=== PATIENT | male | born 1985 | race Caucasian/White ===

== ENCOUNTER 2016-10-06 20:08 | Emergency (ER) | payer BC ==
[~2016-10-06] VITALS: Ht 185.4 cm; Wt 148.0 kg
[~2016-10-06 20:08] MED LIST: OMEP20TA39 PO; TYLENOL PO
[2016-10-06 20:15] VITALS: O2SAT 100
[2016-10-06 20:19] VITALS: BP 158/92; PULSE 71; RESP 18; TEMP 98; O2SAT 100
[2016-10-06] MEDS ORDERED: NEXI40CA PO (20:19)
[2016-10-06 20:40] VITALS: BP 149/84; PULSE 78; RESP 18; O2SAT 100
[2016-10-06] MEDS ORDERED: SODIUM CHLORIDE 0.9% FLUSH 10 ML FLUSH IVF PRN (20:45)
--- NOTE | 2016-10-06 20:45 | PD ---
HPI Chief Complaint: Chest Pain Time Seen by Provider: 20:26 Travel History International Travel<30 days: No Contact w/Intl Traveler<30days: No Traveled to known affect area: No History of Present Illness HPI The patient is a 31-year-old male with no known history of heart disease who complains of left shoulder and left anterior chest pain for about 15 minutes prior to admission. He states the pain as a 4/10. He does not have a history of hypertension, elevated cholesterol, diabetes and does not smoke. He has been in before for musculoskeletal pain. He has seen a district operations manager who told him not to worry so much about his heart, that his heart was fine. He has had a Holter monitor and EKG in the past which apparently were normal. He has not had a stress test. He denies any nausea, palpitations, diaphoresis, shortness of breath or radiation of pain. PFSH Past Medical History Diminished Hearing: No GERD: Yes Immunizations Current: Yes Tetanus Vaccination: > 5 Years Influenza Vaccination: No Past Surgical History Abdominal Surgery: Yes (ENDOSCOPY) Social History Alcohol Use: No Tobacco Use: No Substance Use: No Allergies-Medications (Allergen,Severity, Reaction): Coded Allergies: No Known Allergies (Unverified , 10/06/16) Reported Meds & Prescriptions Reported Meds & Active Scripts Active Reported Nexium (Esomeprazole DR) 40 Mg Capdr 40 Mg PO DAILY Review of Systems Except as stated in HPI: all other systems reviewed are Neg Physical Exam Narrative GENERAL: The patient is slightly anxious, alert, oriented 3 in no apparent distress. His blood pressure shows 158/92 but the rest the vital signs are normal. SKIN: Focused skin assessment warm/dry. HEAD: Atraumatic. Normocephalic. EYES: Pupils equal and round. No scleral icterus. No injection or drainage. ENT: No nasal bleeding or discharge. Mucous membranes pink and moist. NECK: Trachea midline. No JVD. CARDIOVASCULAR: Regular rate and rhythm. No murmur appreciated. RESPIRATORY: No accessory muscle use. Clear to auscultation. Breath sounds equal bilaterally. I can completely reproduce the patient's pain by pressing on the left shoulder and left anterior chest wall. GASTROINTESTINAL: Abdomen soft, non-tender, nondistended. Hepatic and splenic margins not palpable. MUSCULOSKELETAL: No obvious deformities. No clubbing. No cyanosis. No edema. NEUROLOGICAL: Awake and alert. No obvious cranial nerve deficits. Motor grossly within normal limits. Normal speech. PSYCHIATRIC: The patient appears slightly anxious; insight and judgment normal. Data Data Last Documented VS Vital Signs Date Time Temp Pulse Resp B/P Pulse Ox O2 Delivery O2 Flow Rate FiO2 10/06/16 21:00 99 Room Air 10/06/16 20:22 74 10/06/16 20:19 98.0 18 158/92 Orders Electrocardiogram (10/06/16 20:41) Basic Metabolic Panel (Bmp) (10/06/16 20:41) Ckmb (Isoenzyme) Profile (10/06/16 20:41) Complete Blood Count With Diff (10/06/16 20:41) Magnesium (Mg) (10/06/16 20:41) Troponin I (10/06/16 20:41) Ecg Monitoring (10/06/16 20:41) Iv Access Insert/Monitor (10/06/16 20:41) Oximetry (10/06/16 20:41) Oxygen Administration (10/06/16 20:41) Sodium Chloride 0.9% Flush (Ns Flush) (10/06/16 20:45) Chest, Pa & Lat (10/06/16 20:41) CKMB (10/06/16 21:05) CKMB% (10/06/16 21:05) Potassium Chloride (Kcl) (10/06/16 22:00) Labs Laboratory Tests Test 10/06/16 21:05 White Blood Count 7.6 TH/MM3 Red Blood Count 4.78 MIL/MM3 Hemoglobin 13.4 GM/DL Hematocrit 40.4 % Mean Corpuscular Volume 84.6 FL Mean Corpuscular Hemoglobin 28.1 PG Mean Corpuscular Hemoglobin 33.3 % Concent Red Cell Distribution Width 12.9 % Platelet Count 231 TH/MM3 Mean Platelet Volume 7.2 FL Neutrophils (%) (Auto) 56.9 % Lymphocytes (%) (Auto) 29.2 % Monocytes (%) (Auto) 8.8 % Eosinophils (%) (Auto) 4.5 % Basophils (%) (Auto) 0.6 % Neutrophils # (Auto) 4.4 TH/MM3 Lymphocytes # (Auto) 2.2 TH/MM3 Monocytes # (Auto) 0.7 TH/MM3 Eosinophils # (Auto) 0.3 TH/MM3 Basophils # (Auto) 0.0 TH/MM3 CBC Comment DIFF FINAL Differential Comment Sodium Level 139 MEQ/L Potassium Level 3.4 MEQ/L Chloride Level 104 MEQ/L Carbon Dioxide Level 29.1 MEQ/L Anion Gap 6 MEQ/L Blood Urea Nitrogen 16 MG/DL Creatinine 1.10 MG/DL Estimat Glomerular Filtration 79 ML/MIN Rate Random Glucose 92 MG/DL Calcium Level 9.0 MG/DL Magnesium Level 2.2 MG/DL Total Creatine Kinase 331 U/L Creatine Kinase MB 4.1 NG/ML Creatine Kinase MB % 1.2 % Troponin I LESS THAN 0.02 NG/ML MDM Medical Decision Making Medical Screen Exam Complete: Yes Emergency Medical Condition: Yes Medical Record Reviewed: Yes Interpretation(s) The EKG shows sinus rhythm with a ventricular rate of 86 and is completely normal. The CBC is normal. The basic metabolic profile shows a potassium of 3.4 and GFR of 79 but is otherwise unremarkable. The CK-MB percentage is normal despite an elevated total CK and the troponin I is normal. The chest x- ray is normal. Differential Diagnosis Acute coronary syndrome, musculoskeletal pain, esophageal pain, pleuritic pain, gastrointestinal pain, chest wall pain Narrative Course The patient has musculoskeletal pain. He was offered stress testing but declined. He wishes to go to an orthopedist to check out his left shoulder. Diagnosis Primary Impression: Musculoskeletal pain Additional Impression: Atypical chest pain Additional Instructions: As we discussed, the next cardiac testing would be a stress test but this appears to be musculoskeletal pain. If you change your mind, we will be glad to do a stress test or you can do it through your district operations manager. Med/Other Pt SpecificInfo: Prescription(s) given Scripts Ibuprofen 800 Mg [id number] Mg PO TID #33 TAB Ref 0 Prov:Catrachito Saldivar MD 10/06/16 Disposition: 01 DISCHARGE HOME Condition: Stable Catrachito Saldivar MD Oct 06, 2016 20:45
[2016-10-06 21:10] VITALS: BP 152/81; PULSE 68; RESP 18; O2SAT 99
[2016-10-06 21:12] LABS: AUTOMATED NEUTROPHIL # 4.4 TH/MM3 (1.8-7.7); BASOPHIL % 0.6 % (0.0-2.0); EOSINOPHIL # 0.3 TH/MM3 (0-0.4); EOSINOPHIL % 4.5 % (0.0-4.0); HEMATOCRIT 40.4 % (39.0-51.0); HEMO FLAGS DIFF FINAL; LYMPH % 29.2 % (9.0-44.0); LYMPHOCYTE # 2.2 TH/MM3 (1.0-4.8); MEAN CELL VOLUME 84.6 FL (80.0-100.0); MEAN CORPUSCULAR HEMOGLOBIN 28.1 PG (27.0-34.0); MEAN CORPUSCULAR HGB CONC 33.3 % (32.0-36.0); MONO % 8.8 % (0.0-8.0); NEUT % 56.9 % (16.0-70.0); PLATELET COUNT 231 TH/MM3 (150-450); RED BLOOD COUNT 4.78 MIL/MM3 (4.50-5.90); RED CELL DISTRIBUTION WIDTH 12.9 % (11.6-17.2); WHITE BLOOD COUNT 7.6 TH/MM3 (4.0-11.0)
--- NOTE | 2016-10-06 21:13 | RADRPT ---
EXAM DATE/TIME: 10/06/2016 20:52 [facility] COMPARISON: No previous studies available for comparison. INDICATIONS : Chest pain. MEDICAL HISTORY : None. SURGICAL HISTORY : None. ENCOUNTER: Initial ACUITY: 1 day PAIN SCORE: 8/10 LOCATION: Bilateral chest FINDINGS: PA and lateral views of the chest demonstrate the lungs to be symmetrically aerated without evidence of mass, infiltrate or effusion. The cardiomediastinal contours are unremarkable. Osseous structure s are intact. CONCLUSION: No acute disease. Omid Richards MD on October 06, 2016 at 21:09 Board Certified Radiologist. This report was verified electronically.
[2016-10-06 21:21] LABS: CHLORIDE 104 MEQ/L (98-107); POTASSIUM 3.4 MEQ/L (3.5-5.1); SODIUM (NA) 139 MEQ/L (136-145)
[2016-10-06 21:24] LABS: ANION GAP 6 MEQ/L (5-15); BICARBONATE 29.1 MEQ/L (21.0-32.0); BLOOD UREA NITROGEN 16 MG/DL (7-18); MAGNESIUM 2.2 MG/DL (1.5-2.5)
[2016-10-06 21:28] LABS: GLOMERULAR FILTRATION RATE 79 ML/MIN (>89)
[2016-10-06 21:31] LABS: CREATINE KINASE 331 U/L (39-308)
[2016-10-06 21:43] LABS: CKMB 4.1 NG/ML (0.5-3.6)
[2016-10-06] MEDS ORDERED: POTASSIUM CHLORIDE 20 MEQ CONTROLLED RELEASE TAB PO ONE (22:00)
[2016-10-06] MEDS ORDERED: IBUP800T23 PO (22:08)
[2016-10-06 22:46] VITALS: BP 165/81; TEMP 97.6
--- NOTE | 2016-10-07 11:31 | EKG ---
Date Performed: 10/06/2016 Time Performed: 20:16:38 PTAGE: 31 years EKG: Sinus rhythm NORMAL ECG Compared to prior tracing no significant change PREVIOUS TRACING : 02/07/2014 02.31 DOCTOR: Joseph Townsend Interpretating Date/Time 10/07/2016 11:29:04
== END 2016-10-06 22:50 | disposition home or self-care (01) ==
LOC: PHED 20:08
DX: M25.512 Pain in left shoulder (principal); R07.89 Other chest pain; Z79.899 Other long term (current) drug therapy; Z87.19 Personal history of other diseases of the digestive system
CPT/HCPCS: 71020; 80048; 82550; 82552; 83735; 84484; 85025; 93005; 99285